=== PATIENT | female | born 1950 | race Caucasian/White ===

== ENCOUNTER 2017-07-25 19:02 | Emergency (ER) | payer MEDICARE, BC ==
[2017-07-25 19:43] VITALS: BP 128/67
[2017-07-25] MEDS ORDERED: Ibuprofen TAB* 400 MG PO ONE (19:59)
--- NOTE | 2017-07-25 20:14 | ED ---
HPI Febrile Illness - HPI Summary HPI Summary: 67 yr old female with the complaint of fever, chills, malaise for a couple days , and runny nose since Friday. She had deep sedation and a cone biopsy on . Denies NVD. Denies SOB, CP, abdominal pain, pelvic pain, urinary symptoms , vaginal bleeding or discharge. She is post op day 3 today. She says she was told to go to the ER but didn't want to go to the ER. She came here instead. - History of Current Complaint Chief Complaint: UCGeneralIllness Time Seen by Provider: 07/25/17 19:53 Pain Intensity: 0 - Allergy/Home Medications Allergies/Adverse Reactions: Allergies Allergy/AdvReac Type Severity Reaction Status Date / Time No Known Allergies Allergy Verified 07/25/17 19:43 Home Medications: Home Medications Atorvastatin* [Lipitor*] 20 mg PO 1700 07/25/17 [History Confirmed 07/25/17] Ibuprofen TAB* [Motrin TAB* 400 MG] 400 mg PO Q6H PRN 07/25/17 [History Confirmed 07/25/17] [place]-3 Fatty Acids/Fish Oil [Fish Oil 1,000 mg Capsule] 1 each PO DAILY [History Confirmed 07/25/17] Propranolol TAB* [Inderal TAB*] 5 mg PO DAILY 07/25/17 [History Confirmed ] PMH/Surg Hx/FS Hx/Imm Hx Endocrine/Hematology History: Denies: Hx Diabetes Cardiovascular History: Denies: Hx Hypertension, Hx Pacemaker/ICD History: Denies: Hx Renal Disease Sensory History: Denies: Hx Hearing Aid Psychiatric History: Denies: Hx Panic Disorder - Cancer History Cancer Type, Location and Year: MELANOMA - SKIN REMOVED FROM BACK Hx Chemotherapy: No Hx Radiation Therapy: No - Surgical History Surgery Procedure, Year, and Place: 12/05/16 BIOPSY ON AREA OF Rt GREAT TOE. BREAST BIOPSY - BENIGN. MELANOMA REMOVED AREA ON BACK Infectious Disease History: No Infectious Disease History: Denies: Traveled Outside the [place] in Last 30 Days - Social History Alcohol Use: Occasionally Substance Use Type: Reports: None Smoking Status (MU): Never Smoked Tobacco Review of Systems Positive: Fever, Chills, Fatigue Positive: Nasal Discharge All Other Systems Reviewed And Are Negative: Yes Physical Exam Triage Information Reviewed: Yes Vital Signs On Initial Exam: Initial Vitals Temp Pulse Resp BP Pulse Ox 100.5 F 73 18 128/67 99 07/25/17 19:39 07/25/17 19:39 07/25/17 19:39 07/25/17 19:39 07/25/17 19:39 Vital Signs Reviewed: Yes Appearance: Positive: Well-Appearing, No Pain Distress Skin: Positive: Warm, Skin Color Reflects Adequate Perfusion Head/Face: Positive: Normal Head/Face Inspection Eyes: Positive: EOMI ENT: Positive: Pharynx normal, Nasal congestion, TMs normal Neck: Positive: Nontender Respiratory/Lung Sounds: Positive: Clear to Auscultation, Breath Sounds Present Cardiovascular: Positive: RRR. Negative: Murmur Abdomen Description: Positive: Nontender Musculoskeletal: Positive: Strength/ROM Intact Neurological: Positive: Sensory/Motor Intact, Alert, Oriented to Person Place, Time, CN Intact II-III Psychiatric: Positive: Normal - [place] Coma Scale Best Eye Response: 4 - Spontaneous Best Motor Response: 6 - Obeys Commands Best Verbal Response: 5 - Oriented Coma Scale Total: 15 Diagnostics - Vital Signs Vital Signs Temp Pulse Resp BP Pulse Ox 07/25/17 19:39 100.5 F 73 18 128/67 99 - Laboratory Lab Results: Lab Results 07/25/17 Range/Units 20:02 POC Urine Color Yellow POC Urine Clarity Clear POC Urine pH 7.5 (5-9) POC Ur Specif [place] 1.015 (1.010-1.030) POC Urine Protein Negative (Negative) POC Ur Glucose (UA) Negative (Negative) POC Urine Ketones 2+ A (Negative) POC Urine Blood Trace-intact A (Negative) POC Urine Nitrite Negative (Negative) POC Urine Bilirubin Negative (Negative) POC Urine Urobilinogen 0.2 (Negative) POC U Leukocyte Esteras Trace A (Negative) Lab Statement: Any lab studies that have been ordered have been reviewed, and results considered in the medical decision making process. Course/Dx - Course Course Of Treatment: 67 yr old female post op day three for cone biopsy of cervix. She has stated she doesn't want to go to the ER. She has no clear source of fever at this point. No urinary symptoms, and only some runny nose. Neg Rapid Flu test. I have told her she needs to go to the ER for Labs and further eval of her post op fever at day three. This is the official recommendation to her. - Diagnoses Provider Diagnoses: Fever postop Discharge - Sign-Out/Discharge Documenting (check all that apply): Discharge/Admit/Transfer - Discharge Plan Condition: Good Disposition: [facility] Patient Education Materials: Fever in Adults (ED) Referrals: Jimmy Arteaga MD [Primary Care Provider] - Additional Instructions: You should go to the [place] ER after leaving here this evening for further evaluation of your fever after surgery. Please go to the ER for further evaluation of your fever and symptoms. - Billing Disposition and Condition Condition: GOOD Disposition: [facility]
== END 2017-07-25 20:41 | disposition short-term general hospital (02) ==
LOC: UCCORT 19:02
DX: R50.82 Postprocedural fever (principal); R53.81 Other malaise; R09.89 Other specified symptoms and signs involving the circulatory and respiratory systems; Z98.890 Other specified postprocedural states
CPT/HCPCS: 81003; 87086; 87502; 99212; A9270-GY; G0463

== ENCOUNTER 2018-11-25 14:34 | Emergency (ER) | payer MEDICARE, BC ==
[2018-11-25 16:04] VITALS: BP 140/79
--- NOTE | 2018-11-25 17:07 | UC ---
Throat Pain/Nasal Tom HPI - HPI Summary HPI Summary: 68-year-old female with history of bronchiectasis presents with 5 day history of general malaise, body aches, fatigue, headache, sore throat, and occasional dry nonproductive cough. Patient states that 2 nights ago she woke up feeling nauseated and when she stood up to go to the bathroom and things became "black" briefly but she did not lose consciousness. Did not have any vomiting. States that her sore throat is very severe. She is able to swallow fluids but with a great deal of discomfort. Reports very decreased appetite since onset of illness especially due to the throat pain. Today she she noted her tonsils were swollen with white spots and that she had some swollen lymph nodes. Has been taking ibuprofen with minimal relief in her discomfort. Denies nasal congestion, ear pain, chest pain, palpitations, diaphoresis, abdominal pain, vomiting, or diarrhea. - History of Current Complaint Chief Complaint: UCGeneralIllness Stated Complaint: ST/CONGESTION/BODY ACHES Time Seen by Provider: 11/25/18 16:24 Hx Obtained From: Patient Pain Intensity: 8 - Allergies/Home Medications Allergies/Adverse Reactions: Allergies Allergy/AdvReac Type Severity Reaction Status Date / Time No Known Allergies Allergy Verified 11/25/18 16:04 PMH/Surg Hx/FS Hx/Imm Hx Endocrine History: Dyslipidemia Respiratory History: Other - Bronchietasis - Surgical History Surgical History: Yes Surgery Procedure, Year, and Place: 12/05/16 BIOPSY ON AREA OF Rt GREAT TOE. BREAST BIOPSY - BENIGN. MELANOMA REMOVED AREA ON BACK - Family History Known Family History: Positive: Non-Contributory - Social History Occupation: Retired Lives: With Family Alcohol Use: Occasionally Substance Use Type: None Smoking Status (MU): Never Smoked Tobacco Review of Systems All Other Systems Reviewed And Are Negative: Yes Constitutional: Positive: Chills, Fatigue. Negative: Fever Skin: Negative: Rash Eyes: Negative: Drainage, Eye Redness ENT: Positive: Sore Throat. Negative: Ear Ache, Nasal Discharge, Sinus Congestion, Sinus Pain/Tenderness Respiratory: Positive: Cough. Negative: Shortness Of Breath Cardiovascular: Negative: Palpitations, Chest Pain Gastrointestinal: Positive: Nausea. Negative: Abdominal Pain, Vomiting, Diarrhea Genitourinary: Positive: Negative Neurovascular: Positive: Negative Musculoskeletal: Positive: Negative Neurological: Positive: Headache Is Patient Immunocompromised?: No Physical Exam - Summary Physical Exam Summary: GENERAL APPEARANCE: Well developed, well nourished, alert and cooperative, and appears to be in no acute distress. EYES: Conjunctiva clear. No drainage. EARS: External auditory canals and tympanic membranes clear, hearing grossly intact. NOSE: No nasal discharge. THROAT: Pharygeal erythema, 2+ tonsils with exudate. Uvula midline. Airway patent. NECK: Neck supple, non-tender. Anterior cervical lymphandenopathy. CARDIAC: Normal S1 and S2. No S3, S4 or murmurs. Rhythm is regular. There is no peripheral edema, cyanosis or pallor. Extremities are warm and well perfused. Capillary refill is less than 2 seconds. Peripheral pulses intact. LUNGS: Clear to auscultation without rales, rhonchi, wheezing or diminished breath sounds. Dry non-productive cough. ABDOMEN: Positive bowel sounds. Soft, nondistended, nontender. No guarding or rebound. No masses or hepatosplenomegally. MUSKULOSKELETAL: ROM intact to all extremities. No joint erythema or tenderness. Normal muscular development. Normal gait. SKIN: Skin normal color, texture and turgor with no lesions or eruptions. Triage Information Reviewed: Yes Vital Signs: Initial Vital Signs Temp 100.7 F 11/25/18 15:57 Pulse 83 11/25/18 15:57 Resp 18 11/25/18 15:57 BP 140/79 11/25/18 15:57 Pulse Ox 98 11/25/18 15:57 Vital Signs Reviewed: Yes Throat Pain/Nasal Course/Dx - Course Course Of Treatment: 68-year-old female with history of bronchiectasis presents with 5 day history of general malaise, body aches, fatigue, headache, sore throat, and occasional dry nonproductive cough. Patient states that 2 nights ago she woke up feeling nauseated and when she stood up to go to the bathroom and things became "black" briefly but she did not lose consciousness. Did not have any vomiting. States that her sore throat is very severe. She is able to swallow fluids but with a great deal of discomfort. Reports very decreased appetite since onset of illness especially due to the throat pain. Today she she noted her tonsils were swollen with white spots and that she had some swollen lymph nodes. Has been taking ibuprofen with minimal relief in her discomfort. Denies nasal congestion, ear pain, chest pain, palpitations, diaphoresis, abdominal pain, vomiting, or diarrhea. Patient had a elevated temperature of 100.7 F. Hypertensive otherwise vital signs stable. Patient had pharyngeal erythema with 2+ tonsils with exudate, anterior cervical lymphadenopathy, clear bilateral breath sounds, a dry nonproductive cough, and otherwise unremarkable exam. Discussed with the patient that her symptoms could very likely be viral however based on the duration and severity of her symptoms as well as her underlying bronchiectasis I am recommending that we start her on an antibiotic at this time. Prescribed Augmentin 875 mg twice a day 10 days, a three-day course of prednisone 50 mg daily to help with the inflammation and pain, was recommend symptomatic treatment. She is to follow up with her primary care provider in 2-3 days if symptoms are not improving. Anticipatory guidance and warning symptoms for immediate evaluation in the emergency room are reviewed with the patient. Realizes understanding and agrees with plan of care. - Differential Dx/Diagnosis Differential Diagnosis/HQI/PQRI: Influenza, Mononucleosis, Peritonsillar Abscess , Pharyngitis, Tonsillitis, URI Provider Diagnosis: Acute pharyngitis Discharge ED - Sign-Out/Discharge Documenting (check all that apply): Patient Departure All imaging exams completed and their final reports reviewed: No Studies - Discharge Plan Condition: Stable Disposition: HOME Prescriptions: Amoxicillin/Clavulanate TAB* [Augmentin TAB 875*] 875 mg PO BID #20 tab Benzonatate CAP* [Tessalon 100 MG CAP*] 100 mg PO TID PRN #21 cap PRN Reason: Cough predniSONE TAB* [Deltasone TAB*] 50 mg PO DAILY #3 tab Patient Education Materials: Pharyngitis (ED) Referrals: Jimmy Arteaga MD [Primary Care Provider] - 2 Days Additional Instructions: Your symptoms are consistent with acute pharyngitis. This could be caused by a virus however with the persistence and severity of your symptoms we will start you on an antibiotic. Start Augmentin 875 mg 1 tab twice a day for 10 days. Take with food to avoid upset stomach. Be sure to complete the entire course even if feeling better. Start prednisone 50 mg daily for 3 days to help reduce the inflammation and reduce pain. Drink plenty of fluids to avoid dehydration especially if you are running any fever. Use salt water gargles several times a day. Take over the counter acetaminophen (Tylenol) or ibuprofen (Advil, Motrin) according to directions as needed for pain or fever. You may also use Chloraseptic spray or Cepacol lonzenges according to directions which contain a numbing medication and can provide some temporary relief from your sore throat. Use Tessalon Perles 1 capsule every 8 hours as needed for cough. Return here or follow up with your primary care provider in 2-3 days if symptoms persist. Seek immediate medical attention in the emergency room if you have fever greater than 100.5 F despite taking acetaminophen or ibuprofen, are unable to swallow or develop drooling, are unable to open your mouth fully, are unable to eat or drink, have pain that is not relieved with over the counter pain medication, have any difficulty breathing, or any worsening of symptoms. - Billing Disposition and Condition Condition: STABLE Disposition: Home
== END 2018-11-25 17:22 | disposition home or self-care (01) ==
LOC: UCCORT 14:34
DX: J02.9 Acute pharyngitis, unspecified (principal)
CPT/HCPCS: 99212; G0463